=== PATIENT | male | born 2005 | race Caucasian/White ===

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

== ENCOUNTER 2025-04-07 17:21 | Emergency (ER) | payer OTHER ==
[~2025-04-07] VITALS: Ht 175.3 cm; Wt 100.0 kg
[~2025-04-07 17:21] MED LIST: ACET-2708 MT; AMOX-494 MT
[2025-04-07 18:37] VITALS: O2SAT 99
[2025-04-07] MEDS: CYCLOBENZAPRINE 10MG TABLET PO ONE (21:11)
[2025-04-07] MEDS: LIDOCAINE 5% PATCH TOP SCH (21:12)
[2025-04-07] MEDS: KETOROLAC 30MG/ML VIAL IM ONE (21:12)
[2025-04-07 22:36] LABS: CLARITY URINE CLOUDY (CLEAR); COLOR URINE DARK YELLOW (YELLOW); GLUCOSE URINE NEGATIVE (NEGATIVE); KETONES URINE NEGATIVE (NEGATIVE); LEUKOCYTE ESTERASE URINE NEGATIVE (NEGATIVE); NITRITE URINE NEGATIVE (NEGATIVE); OCCULT BLOOD URINE NEGATIVE (NEGATIVE); PH URINE 6.0 (4.5-8.0); PROTEIN URINE TRACE (NEGATIVE); SPECIFIC GRAVITY URINE 1.029 (1.005-1.030); UROBILINOGEN URINE 1.0 E.U./dL (0.2-1.0)
[2025-04-07 22:56] LABS: BACTERIA URINE NONE SEEN; RBC URINE 0-2 /hpf (0-2); SQUAMOUS EPITHELIAL CELL URINE FEW /lpf (RARE/1+); WBC URINE 0-2 /hpf (0-2)
[2025-04-07] MEDS ORDERED: IBUP-2028 MT (23:17)
[2025-04-07] MEDS ORDERED: LIDO700A30 TP (23:17)
[2025-04-08 00:10] VITALS: BP 111/75; PULSE 79; RESP 19; TEMP 36.6; O2SAT 100
== END 2025-04-08 00:15 | disposition home or self-care (01) ==
LOC: ER 17:21
DX: S39.012A Strain of muscle, fascia and tendon of lower back, initial encounter (principal); X58.XXXA Exposure to other specified factors, initial encounter; Y93.89 Activity, other specified; Y92.89 Other specified places as the place of occurrence of the external cause; Y99.8 Other external cause status
CPT/HCPCS: 99284; 81003; 72100; 96372; J1885